=== PATIENT | female | born 1980 | race Caucasian/White ===

== ENCOUNTER → 2022-07-18 | Outpatient (CLI) | payer SELFPAY ==
--- NOTE | 2022-07-18 08:56 | MM ---
Reason for Exam: Additional evaluation requested from abnormal screening. Last screening mammogram was performed less than 1 month ago. Patient History: Menarche at age 12. First Full-Term at age 25. Hysterectomy at age 31. Patient used Hormonal Contraceptives for 3 years. Paternal grandmother had breast cancer, age 60. Mother had breast cancer, age 57. Risk Values: Norma 5 year model risk: 1.2%. NCI Lifetime model risk: 18.6%. Prior Study Comparison: 07/26/2013 Bilateral Diagnostic Mammogram, [facility]. 07/14/2022 Bilateral [facility], [place] screening mammo, [facility]. Tissue Density: Right: The breast tissue is heterogeneously dense. This may lower the sensitivity of mammography. Findings: Analyzed By CAD. Under compression there is dispersion of the density. Persistent underlying spiculated or lobulated mass is not evident. Short-term follow-up is recommended. Overall Assessment: Probably benign, BI-RAD 3 Management: Diagnostic Mammogram of the right breast in 6 months. A negative mammogram report should not preclude additional follow up of suspicious palpable abnormalities. Patient should continue monthly self breast exam. A clinical breast exam by your physician is recommended on an annual basis and results should be correlated with mammographic findings. Electronically signed and approved by: Freddy Polo D.O. Radiologis
== END | disposition home or self-care (01) ==
LOC: RADMAMWWP 07:38
PROVIDERS: ATTEND Family Medicine
DX: R92.8 Other abnormal and inconclusive findings on diagnostic imaging of breast (principal); Z80.3 Family history of malignant neoplasm of breast
CPT/HCPCS: 77065

== ENCOUNTER → 2023-01-16 | Outpatient (CLI) | payer SELFPAY ==
--- NOTE | 2023-01-16 09:05 | MM ---
Reason for Exam: Follow-up at short interval from prior study. Last screening mammogram was performed 6 month(s) ago. Patient History: Menarche at age 12. First Full-Term at age 25. Hysterectomy at age 31. Patient used Hormonal Contraceptives for 3 years. Paternal grandmother had breast cancer, age 60. Mother had breast cancer, age 57. Risk Values: Norma 5 year model risk: 1.3%. NCI Lifetime model risk: 18.5%. Prior Study Comparison: 07/26/2013 Bilateral Diagnostic Mammogram, [facility]. 07/14/2022 Bilateral [facility] screening mammo, [facility]. 07/18/2022 Right MG work up mamm w CAD RT, [facility]. Tissue Density: Right: The breast tissue is heterogeneously dense. This may lower the sensitivity of mammography. Findings: Analyzed By CAD. No suspicious calcification or architectural distortion within the right breast. Stable focal asymmetry which dispersed on prior spot compression in the inner lower right breast on prior imaging. No new suspicious mass. Overall Assessment: Benign, BI-RAD 2 Management: Screening Mammogram of both breasts in 6 months. A clinical breast exam by your physician is recommended on an annual basis and results should be correlated with mammographic findings. This exam should not preclude additional follow-up of suspicious palpable abnormalities. Results were given to the patient verbally at the time of exam. Electronically signed and approved by: Christian Louis D.O.
== END | disposition home or self-care (01) ==
LOC: RADMAMWWP 01-13 08:16
PROVIDERS: ATTEND Family Medicine
DX: R92.8 Other abnormal and inconclusive findings on diagnostic imaging of breast (principal)
CPT/HCPCS: 77066